=== PATIENT | female | born 1950 | race Caucasian/White ===

== ENCOUNTER 2016-06-02 11:51 | Day surgery (SDC) | payer MEDICARE, BC ==
[~2016-06-02 11:51] MED LIST: BOTULINUM TOXIN TYPE A 100 UNITS VIAL IM PRN; ONABOTULINUMTOXINA IM PRN; RINGERS SOLUTION,LACTATED 1,000 ML IV PRN; ceFAZolin SODIUM 1 GM in DEXTROSE 5 % IN WATER 100 ML IV PRN
--- OUTSIDE RECORDS SUMMARY | 2016-06-02 11:57 | XMS REPORT | Continuity of Care Document ---
:1950 Author Organization [facility] ([facility]) Address [address] [place] [address] Phone [phone] Care Team Providers Name Role Phone Crow Deanne Sepideh Primary Care Provider [phone] Source Comments This disclosure is being made pursuant to the Care Everywhere program, applicable federal and state laws, and may not contain all informaitonavailable regarding this patient.[facility] ([facility]) Active Allergies and Adverse Reactions No Known Allergies Current Medications Prescription Sig. Disp. Refills Start Date End Date Status Cetirizine (ZYRTEC) 10 mg Take by mouth. Active Cap SODIUM CHLORIDE use into each Active (RHINO-MIST NASL) nostril. POTASSIUM CHLORIDE Take by mouth 2 Active (KLOR-CON 10 PO) times daily. aspirin 81 mg tablet Take 81 mg by Active mouth daily. ALBUTEROL INHL Use by inhalation Active as needed. SERTraline (ZOLOFT) 100 Take 50 mg by Active mg tablet mouth daily. simvastatin (ZOCOR) 20 mg Take 20 mg by Active tablet mouth every evening. hydrochlorothiazide Take 25 mg by Active (HYDRODIURIL) 12.5 mg mouth daily. tablet Ascorbic Acid (VITAMIN C) Take by mouth Active 1,000 mg Tab daily. Calcium-Cholecalciferol, Take 2,000 mg by Active D3, (CALCIUM 600 + D,3,) mouth daily. 600-200 mg-unit Cap MULTIVITAMINS Take by mouth Active (MULTI-VITAMIN PO) daily. vitamin E 400 unit Take 400 Units by Active capsule mouth daily. docusate (COLACE) 100 mg Take 1 Cap by 60 Cap 0 09/07/2009 Active capsule mouth 2 times daily. Indications: Constipation losartan 50 mg tablet Take 50 mg by Active mouth daily. FLUTICASONE 50 02/20/2014 Active mcg/Actuation nasal spray IMIPRAMINE 25 mg tablet 1 Tab daily. 03/15/2014 Active LEVOTHYROXINE 75 mcg 1 Tab daily. 03/09/2014 Active tablet AMITIZA 24 mcg capsule 02/20/2014 Active OMEPRAZOLE 20 mg enteric 01/13/2014 Active coated capsule OXYBUTYNIN 5 mg tablet 02/09/2014 Active PROMETHAZINE 25 mg tablet 02/09/2014 Active magnesium oxide 400 mg Take 400 mg by Active tablet mouth daily Active Problems Problem Noted Date Malignant neoplasm of breast 08/22/2011 Malignant neoplasm of esophagus, unspecified site 01/06/2008 Hyperpotassemia 11/28/2007 Esophageal reflux 10/07/2007 Dysphagia, unspecified(787.20) 10/07/2007 Immunizations Name Dates Previously Given Next Due Influenza, unspecified 01/10/2014 Social History Tobacco Use Types Packs/Day Years Used Date Never Smoker Smokeless Tobacco: Never Used Tobacco Cessation:Counseling Given: Yes Comments: Alcohol Use Drinks/Week oz/Week Comments No Last Filed Vital Signs Vital Sign Reading Time Taken Blood Pressure 137/71 08/12/2014 11:20 AM CDT Pulse 81 08/12/2014 11:20 AM CDT Temperature 36 C (96.8 F) 08/12/2014 11:20 AM CDT Respiratory Rate 15 02/27/2012 11:53 AM [employer] Height 1.575 m (5' 2") 08/12/2014 11:20 AM CDT Weight 60.328 kg (133 lb) 08/12/2014 11:20 AM CDT Body Mass Index 24.32 08/12/2014 11:20 AM CDT Oxygen Saturation 98% 02/21/2011 2:10 PM [employer] Plan of Care Health Maintenance Due Date Last Done Comments HCV Screening 1950 Hepatitis B Vaccine (1 of 3 1950 - Primary Series) Tdap Vaccine 1960 Lipid Disorder Screening 06/02/1967 Td Vaccine 06/02/1967 Colonoscopy 1999 Zoster Vaccine 2009 Osteoporosis Screening (DXA 2014 Bone Density) Pneumococcal Vaccine (1 of 2 2014 - PCV13) Mammogram 03/17/2015 03/17/2014, Additional history exists 02/26/2013, 02/20/2012 Influenza Vaccine: Seasonal 10/11/2015 01/10/2014 (#1) Results from Last 3 Months Not on file
--- OUTSIDE RECORDS SUMMARY | 2016-06-02 11:57 | XMS REPORT | Continuity of Care Document ---
:1950 Author Organization [facility] [place] [address] Care Team Providers Name Role Phone Deanne Maria Primary Care Provider [phone] Source Comments This disclosure is being made pursuant to the Locality program and maynot contain all information available regarding this patient.[facility] Active Allergies and Adverse Reactions No Known Allergies Current Medications Be aware that medications may not be up to date as of this document. Alwaysverify current medications with the patient. Prescription Sig. Disp. Refills Start Date End Date Status fluticasone (FLONASE) by Nasal route. Active 50 MCG/ACT nasal spray losartan (COZAAR) 50 Take 50 mg by Active MG tablet mouth. Magnesium 300 MG CAPS Take 300 mg by Active mouth. omeprazole (PRILOSEC) Take 20 mg by Active 20 MG capsule mouth. albuterol (PROVENTIL Inhale into the Active HFA;VENTOLIN HFA) 108 lungs. (90 BASE) MCG/ACT inhaler calcium ascorbate Take 500 mg by Active (BUFFERED VITAMIN C) mouth. 500 MG TABS tablet aspirin 81 MG tablet Take 81 mg by Active mouth. Cetirizine HCl Take 10 mg by Active (ZYRTEC) 10 MG CAPS mouth. sertraline (ZOLOFT) 50 Take 50 mg by Active MG tablet mouth. simvastatin (ZOCOR) 20 Take 20 mg by Active MG tablet mouth. vitamin E 400 UNIT Take 400 Units Active capsule by mouth. levothyroxine Take 75 mcg by Active (SYNTHROID, mouth every LEVOTHROID) 75 MCG morning. tablet Multiple Vitamin Take 1 tablet by Active (MULTI VITAMIN DAILY) mouth daily. TABS Calcium Take 1 tablet by Active Carb-Cholecalciferol mouth 2 (two) (CALCIUM 600 + D PO) times daily. vitamin D, Take 1,000 Units Active cholecalciferol, 1000 by mouth 2 (two) UNITS tablet times daily. lactulose (CHRONULAC) Take 75 mLs by 2250 mL 11 09/20/2015 09/19/2016 Active 10 GM/15ML solution mouth nightly. busPIRone (BUSPAR) 7.5 09/24/2015 Active MG tablet imipramine (TOFRANIL) 175 mg at 90 tablet 11 10/28/2015 Active 50 MG tablet bedtime imipramine (TOFRANIL) 175 mg by mouth 30 tablet 11 10/28/2015 Active 25 MG tablet nightly Active Problems Problem Noted Date Bloating 09/20/2015 Constipation 06/04/2013 Overview: Overview: SUE MARIN MD Esophageal reflux 06/04/2013 Overview: Overview: SUE MARIN MD Irritable colon 06/04/2013 Overview: Overview: SUE MARIN MD Depressive disorder 06/04/2013 Overview: Overview: Functional urinary incontinence 06/04/2013 Overview: Overview: Hyperlipidemia 06/04/2013 Overview: Overview: Essential hypertension 06/04/2013 Overview: Overview: Hypothyroidism 06/04/2013 Overview: Overview: Cough 10/23/2007 Overview: Overview: NERI ADAMS MD Social History Tobacco Use Types Packs/Day Years Used Date Never Smoker Smokeless Tobacco: Never Used Alcohol Use Drinks/Week oz/Week Comments No 0 Standard drinks or equivalent 0.0 Last Filed Vital Signs Vital Sign Reading Time Taken Blood Pressure 104/62 02/07/2016 1:37 PM [employer]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 Pulse 84 02/07/2016 1:37 PM D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 Temperature 36.2 C (97.1 F) 02/07/2016 1:37 PM D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 Respiratory Rate 18 05/17/2015 1:09 PM D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 Height 1.575 m (5' 2") 12/06/2015 2:07 PM CDT Weight 63.504 kg (140 lb) 02/07/2016 1:37 PM D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 Body Mass Index 25.6 02/07/2016 1:37 PM D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 Oxygen Saturation - - Plan of Care Date Type Specialty Providers Description 06/26/2016 Appointment Gastroenterology Sue Marin MD [facility] [address] [phone] (Fax) 12/07/2016 Appointment Ophthalmology Jose Antonio Gutierrez MD [address] [place] [address] [phone] (Fax) Health Maintenance Due Date Last Done Comments Hepatitis C Screening 06/02/1967 Tetanus/Pertussis (1 - Tdap) 1968 Colonoscopy 06/02/1999 Mammogram 06/02/1999 Well Adult Visit 06/02/1999 Zoster Vaccine 60+ 2009 Bone Density 2014 Pneumococcal Low/Medium Risk 65+ (1 of 2 - PCV13) 2014 Influenza Immunization (#1) 2015 Results from Last 3 Months Not on file
[2016-06-02] MEDS ORDERED: RINGERS SOLUTION,LACTATED 1,000 ML IV ONE (12:40)
[2016-06-02 14:39] VITALS: BP 156/80
== END 2016-06-02 11:52 | disposition home or self-care (01) ==
LOC: AMB 11:51
PROVIDERS: ATTEND Urology
PROC: 3E0K8GC Introduction of Other Therapeutic Substance into Genitourinary Tract, Via Natural or Artificial Opening Endoscopic (ICD-10-PCS; principal; 2016-06-02 12:40)
DX: N39.41 Urge incontinence (principal); I10 Essential (primary) hypertension; E03.9 Hypothyroidism, unspecified; E78.5 Hyperlipidemia, unspecified; M19.90 Unspecified osteoarthritis, unspecified site; Z68.24 Body mass index [BMI] 24.0-24.9, adult
CPT/HCPCS: 52287; J0585